=== PATIENT | female | born 1960 | race Caucasian/White ===

== ENCOUNTER 2020-04-27 11:59 | Emergency (ER) | payer BC ==
[~2020-04-27] VITALS: Ht 157.5 cm; Wt 72.6 kg
[2020-04-27] MEDS ORDERED: ACETAMINOPHEN ES 500 MG TABLET PO ONE (12:45)
[2020-04-27] MEDS ORDERED: ACETAMINOPHEN ES 500 MG TABLET ONE (13:02)
--- NOTE | 2020-04-27 13:34 | NUR ---
Patient discharged to home in stable condition. Written and verbal after care instructions given. Patient verbalizes understanding of instructions. Stressed follow up or return to ER for worsening s/s.
== END 2020-04-27 13:35 | disposition home or self-care (01) ==
LOC: ER 11:59
DX: S63.501A Unspecified sprain of right wrist, initial encounter (principal); W01.0XXA Fall on same level from slipping, tripping and stumbling without subsequent striking against object, initial encounter; Y92.89 Other specified places as the place of occurrence of the external cause; S50.11XA Contusion of right forearm, initial encounter; M19.041 Primary osteoarthritis, right hand; R03.0 Elevated blood-pressure reading, without diagnosis of hypertension
CPT/HCPCS: 73090; A4663; A9150

== ENCOUNTER 2023-09-07 00:08 | Emergency (ER) | payer BC, OTHER ==
[~2023-09-07] VITALS: Ht 157.5 cm; Wt 74.8 kg
[2023-09-07 00:58] LABS: BASOPHILS # (AUTO) 0.1 K/UL (0.0-0.2); BASOPHILS % (AUTO) 0.8 % (0.0-2.0); EOSINOPHILS # (AUTO) 0.1 K/uL (0.0-0.7); EOSINOPHILS % (AUTO) 1.4 % (0.0-7.0); HEMATOCRIT 34.9 % (31.2-41.9); HEMOGLOBIN 11.8 g/dL (10.9-14.3); LYMPHOCYTES # (AUTO) 3.5 K/uL (0.8-4.8); LYMPHOCYTES % (AUTO) 40.3 % (20.5-51.5); MEAN CORPUSCULAR HEMOGLOBIN 30.6 uug (24.7-32.8); MEAN CORPUSCULAR HGB CONC 34 g/dL (32.3-35.6); MEAN CORPUSCULAR VOLUME 90.6 fL (75.5-95.3); MONOCYTES # (AUTO) 0.7 K/uL (0.1-1.30); MONOCYTES % (AUTO) 8.5 % (0.0-11.0); NEUTROPHILS # (AUTO) 4.3 K/uL (1.8-8.9); PLATELET COUNT (AUTO) 316 K/uL (179-408); RED BLOOD CELL COUNT(AUTO) 3.86 MIL/uL (3.63-4.92); RED CELL DISTRIBUTION WIDTH 13.5 % (12.3-17.7); WHITE BLOOD COUNT (AUTO) 8.7 K/uL (3.8-11.8)
[2023-09-07 01:01] LABS: DIFFERENTIAL COMMENT 1
[2023-09-07 01:11] LABS: ALBUMIN 3.2 g/dL (3.4-5.0); BILIRUBIN,TOTAL 0.2 mg/dL (0.2-1.0); CALCIUM 8.9 mg/dL (8.5-10.1); CREATININE 0.8 mg/dL (0.6-1.3); POTASSIUM 3.9 mmol/L (3.5-5.1); TOTAL PROTEIN, SERUM 6.6 g/dL (6.4-8.2)
[2023-09-07] MEDS ORDERED: LEVO500T90 PO (03:02)
[2023-09-07] MEDS ORDERED: levoFLOXacin 500 MG TABLET ONE (03:19)
[2023-09-07] MEDS: levoFLOXacin 500 MG TABLET PO ONE (03:22)
[2023-09-07 03:23] VITALS: BP 149/73; O2SAT 99
== END 2023-09-07 03:29 | disposition home or self-care (01) ==
LOC: ER 00:09
DX: J32.9 Chronic sinusitis, unspecified (principal); E78.5 Hyperlipidemia, unspecified; Z79.899 Other long term (current) drug therapy; Z88.0 Allergy status to penicillin
CPT/HCPCS: 36415; 70450; 70486; 85025; A4606; A4663